=== PATIENT | female | born 1995 | race Hispanic/Latino ===

== ENCOUNTER 2018-07-04 22:07 | Emergency (ER) | payer MEDICAID, OTHER ==
[2018-07-04 22:46] LABS: RAPID GROUP A STREP NEGATIVE (NEGATIVE)
[2018-07-04 23:47] LABS: BASOPHILS % (AUTO) 0.6 % (0.0-5.0); EOSINOPHILS % (AUTO) 1.4 % (0.0-8.0); HEMATOCRIT 42.4 % (36-48); LYMPHOCYTES % (AUTO) 18.4 % (21.0-51.0); MEAN CORPUSCULAR HEMOGLOBIN 29.2 pg (27.0-33.0); MEAN CORPUSCULAR HGB CONC 33.7 g/dL (32.0-36.0); MEAN CORPUSCULAR VOLUME 86.6 fL (79-99); MONOCYTES % (AUTO) 9.2 % (3.0-13.0); NEUTROPHILS % (AUTO) 70.4 % (40.0-77.0); PLATELET COUNT (AUTO) 338 K/uL (130-400); RED CELL DISTRIBUTION WIDTH 13.3 % (11.0-15.5)
[2018-07-04] MEDS ORDERED: ACETAMINOPHEN 325 MG TAB ONE (23:58)
[2018-07-05 01:19] LABS: APPEARANCE,URINE Cloudy (CLEAR); BILIRUBIN,URINE Negative (NEGATIVE); COLOR,URINE Yellow (YELLOW); GLUCOSE, URINE (UA) Negative (NEGATIVE); KETONES,URINE 40 mg/dL (NEGATIVE); LEUKOCYTE ESTERASE ,URINE Trace (NEGATIVE); NITRATE,URINE Negative (NEGATIVE); OCCULT BLOOD,URINE Negative (NEGATIVE); PH,URINE 6.5 (5.0-8.0); PROTEIN,URINE Negative (NEGATIVE); UROBILINOGEN,URINE 0.2 mg/dL (0.2-1.0)
[2018-07-05 01:34] LABS: BACTERIA,URINE Rare /HPF (None Seen); RBC,URINE 0-1 /HPF (0-1); WBC,URINE 0-1 /HPF (0-1)
== END 2018-07-05 01:59 | disposition home or self-care (01) ==
LOC: EDH 22:07
DX: O99.511 Diseases of the respiratory system complicating pregnancy, first trimester (principal); J02.8 Acute pharyngitis due to other specified organisms; B97.89 Other viral agents as the cause of diseases classified elsewhere; Z3A.01 Less than 8 weeks gestation of pregnancy; Z87.891 Personal history of nicotine dependence
CPT/HCPCS: 36415; 76801; 81001; 84702; 85025; 87804; 87880

== ENCOUNTER 2023-07-01 16:38 | Emergency (ER) | payer MEDICAID, OTHER ==
[~2023-07-01] VITALS: Ht 152.4 cm; Wt 79.8 kg
[2023-07-01 17:07] LABS: RAPID GROUP A STREP negative (NEGATIVE)
[2023-07-01 17:11] LABS: SARS-CoV-2, RNA, NAAT NEGATIVE SARS CoV-2 (NEGATIVE)
[2023-07-01 17:14] LABS: INFLUENZA TYPE B Negative For Type B (NEGATIVE)
[2023-07-01 17:34] LABS: INFLUENZA TYPE A Positive For Type A (NEGATIVE)
[2023-07-01] MEDS ORDERED: OSEL75 PO (18:09)
[2023-07-01 18:20] VITALS: BP 117/78; PULSE 74; RESP 16; O2SAT 98
[2023-07-01] MEDS ORDERED: IBUPROFEN 600 MG TABLET PO ONE (18:30)
[2023-07-01] MEDS ORDERED: OSELTAMIVIR PHOSPHATE 75 MG CAP PO ONE (18:30)
== END 2023-07-01 18:28 | disposition home or self-care (01) ==
LOC: EDH 16:38
DX: J10.1 Influenza due to other identified influenza virus with other respiratory manifestations (principal); Z20.822 Contact with and (suspected) exposure to COVID-19
CPT/HCPCS: 99283; 87635; 87880; 87804 ×2; C9803